=== PATIENT | male | born 1950 | race Caucasian/White ===

== ENCOUNTER 2019-02-25 07:38 | Inpatient (IN) | payer MEDICARE, MEDICAID ==
[~2019-02-25] VITALS: Ht 167.6 cm; Wt 92.1 kg
[~2019-02-25 07:38] MED LIST: AMIODARONE PO; DIGOXIN PO; METO-539 PO; SAVAYSA PO; TAMS0.4C31 PO
[2019-02-25] MEDS ORDERED: HYDR12.54 PO (09:23)
[2019-02-25] MEDS ORDERED: RIVA20TA MT (09:23)
[2019-02-25] MEDS ORDERED: LINA5TAB MT (09:23)
[2019-02-25] MEDS ORDERED: DOXA2TAB2 MT (09:23)
[2019-02-25 10:29] LABS: MEAN CORPUSCULAR HEMOGLOBIN 29.3 pg (28.0-32.0); MEAN CORPUSCULAR VOLUME 88.6 fL (80.0-94.0); PLATELET 221 x1000/uL (130-400); RED BLOOD CELL COUNT 4.54 mill/uL (4.7-6.1); RED CELL DISTRIBUTION WIDTH 13.8 % (11.6-14.6)
[2019-02-25] MEDS ORDERED: HEPARIN SODIUM 1,000 UNIT/1ML VIAL IV ONE (10:32)
[2019-02-25 10:33] LABS: CHLORIDE 109 mEq/L (98-107)
[2019-02-25 10:36] LABS: PARTIAL THROMBOPLASTIN TIME 29.3 sec (23.4-31.0); PROTHROMBIN TIME 10.7 sec (9.6-11.0)
[2019-02-25] MEDS ORDERED: HEPARIN 1,000 UNITS PREMIX 2,000 ML IV ONE (14:48)
[2019-02-25] MEDS ORDERED: LIDOCAINE HCL/PF 1% 10 MG/ML 5ML VIAL ONE (15:45)
[2019-02-25] MEDS ORDERED: FENTANYL CITRATE/PF 50MCG/ML 2ML VIAL ONE ×2 (15:45→20:42)
[2019-02-25] MEDS ORDERED: SODIUM CHLORIDE 0.9% 10ML VIAL ONE (15:45)
[2019-02-25] MEDS ORDERED: MIDAZOLAM HCL 2 MG/2 ML VIAL ONE (15:45)
[2019-02-25] MEDS ORDERED: NEOSTIGMINE METHYLSULFATE 1MG/ML 10 ML VIAL ONE (15:45)
[2019-02-25] MEDS ORDERED: ROCURONIUM BROMIDE 10MG/ML VIAL 5ML IV ONE ×2 (15:45→15:48)
[2019-02-25] MEDS ORDERED: GLYCOPYRROLATE 0.2 MG/ML 2ML VIAL ONE (15:45)
[2019-02-25] MEDS ORDERED: CEFAZOLIN SODIUM 1000MG/VIAL ONE (15:45)
[2019-02-25] MEDS ORDERED: PROPOFOL 200MG/20ML VIAL IV ONE (15:45)
[2019-02-25] MEDS ORDERED: SUCCINYLCHOLINE CHLORIDE 200MG/10ML IV ONE (15:46)
[2019-02-25] MEDS ORDERED: EPHEDRINE SULFATE 50MG/ML VIAL ONE (15:47)
[2019-02-25] MEDS ORDERED: METOCLOPRAMIDE HCL 10MG/2ML VIAL ONE (15:47)
[2019-02-25] MEDS ORDERED: ONDANSETRON HCL 4MG/2ML INJ ONE (15:47)
[2019-02-25] MEDS ORDERED: PHENYLEPHRINE HCL 10 MG/ML 1ML (IV VIAL) IV ONE (15:47)
[2019-02-25 15:54] LABS: HEMATOCRIT. 40.4 % (42.0-52.0); HEMOGLOBIN. 13.4 g/dL (14.0-18.0); MEAN PLATELET VOLUME 8.8 fl (7.4-10.4)
[2019-02-25 16:08] LABS: PLATELET ESTIMATE NORMAL
[2019-02-25] MEDS ORDERED: LIDOCAINE HCL 1% 20ML VIAL (Pyxis) INJ ONE (16:14)
[2019-02-25] MEDS ORDERED: HEPARIN 1000 UNITS/ML 10ML ONE (18:10)
[2019-02-25] MEDS ORDERED: VECURONIUM BROMIDE 10 MG/VIAL IV ONE (18:21)
[2019-02-25] MEDS ORDERED: PROTAMINE SULFATE 10MG/ML VIAL 5ML IV ONE (21:52)
[2019-02-25] MEDS ORDERED: HYDROMORPHONE HCL/PF 2MG/ML CPJ IV PRN (22:30)
[2019-02-25] MEDS ORDERED: ACETAMINOPHEN 325MG TABLET PO PRN (22:30)
[2019-02-25] MEDS ORDERED: ONDANSETRON HCL 4MG/2ML INJ IV PRN (22:30)
[2019-02-25] MEDS ORDERED: ATROPINE SULFATE 1MG/10ML SYR IV PRN (22:30)
[2019-02-25] MEDS ORDERED: MORPHINE SULFATE 2 MG/ML CPJ (NOT FOR IM USE) IV PRN (22:30)
[2019-02-25] MEDS ORDERED: MEPERIDINE HCL/PF 25MG/ML CPJ IV PRN ×2 (22:30)
[2019-02-25 23:30] VITALS: BP 159/79
[2019-02-26] VITALS (12 sets, daily range): BP systolic 117–174; BP diastolic 58–89
[2019-02-26] MEDS ORDERED: HYDRALAZINE 20MG/ML VIAL IV PRN (00:30)
[2019-02-26] MEDS ORDERED: SODIUM CHLORIDE 0.9% 1,000 ML IV ONE (00:53)
[2019-02-26 07:27] LABS: CHLORIDE 110 mEq/L (98-107)
[2019-02-26 07:37] LABS: HEMATOCRIT. 37.6 % (42.0-52.0); HEMOGLOBIN. 12.8 g/dL (14.0-18.0); MEAN CORPUSCULAR HEMOGLOBIN 30.2 pg (28.0-32.0); MEAN CORPUSCULAR VOLUME 88.8 fL (80.0-94.0); MEAN PLATELET VOLUME 8.4 fl (7.4-10.4); PLATELET 201 x1000/uL (130-400); RED BLOOD CELL COUNT 4.23 mill/uL (4.7-6.1); RED CELL DISTRIBUTION WIDTH 13.7 % (11.6-14.6)
[2019-02-26] MEDS ORDERED: LINAGLIPTIN 5MG TABLET PO SCH (09:00)
[2019-02-26] MEDS ORDERED: RIVAROXABAN 20 MG TABLET PO SCH (09:00)
[2019-02-26] MEDS ORDERED: HYDROCHLOROTHIAZIDE 12.5MG CAPSULE PO SCH (09:00)
[2019-02-26] MEDS ORDERED: TAMSULOSIN HCL 0.4MG SR CAPSULE PO SCH (09:00)
[2019-02-26] MEDS ORDERED: PNEUMOCOCCAL 23-VAL P-SAC VAC 0.5 ML IM ONE (12:00)
[2019-02-26 17:50] LABS: PLATELET ESTIMATE NORMAL
[2019-02-26] MEDS ORDERED: DOXAZOSIN MESYLATE 2MG TABLET PO SCH (21:00)
== END 2019-02-26 20:50 | disposition home or self-care (01) | DRG 274 ==
LOC: OR 07:38 → 3WST 07:39
PROVIDERS: ADMIT Internal Medicine Clinical Cardiac Electrophysiology; ATTEND Internal Medicine Clinical Cardiac Electrophysiology
PROC: 02583ZZ Destruction of Conduction Mechanism, Percutaneous Approach (ICD-10-PCS; principal; 2019-02-25)
PROC: 02K83ZZ Map Conduction Mechanism, Percutaneous Approach (ICD-10-PCS; 2019-02-25)
PROC: 4A023FZ Measurement of Cardiac Rhythm, Percutaneous Approach (ICD-10-PCS; 2019-02-25)
PROC: 4A0234Z Measurement of Cardiac Electrical Activity, Percutaneous Approach (ICD-10-PCS; 2019-02-25)
PROC: 4A023N8 Measurement of Cardiac Sampling and Pressure, Bilateral, Percutaneous Approach (ICD-10-PCS; 2019-02-25)
PROC: B2111ZZ Fluoroscopy of Multiple Coronary Arteries using Low Osmolar Contrast (ICD-10-PCS; 2019-02-25)
PROC: B2161ZZ Fluoroscopy of Right and Left Heart using Low Osmolar Contrast (ICD-10-PCS; 2019-02-25)
PROC: 04HY32Z Insertion of Monitoring Device into Lower Artery, Percutaneous Approach (ICD-10-PCS; 2019-02-25)
DX: I48.0 Paroxysmal atrial fibrillation (principal); E11.9 Type 2 diabetes mellitus without complications; I11.9 Hypertensive heart disease without heart failure; I45.10 Unspecified right bundle-branch block; I25.10 Atherosclerotic heart disease of native coronary artery without angina pectoris; I44.0 Atrioventricular block, first degree; I45.3 Trifascicular block
CPT/HCPCS: 36415; 80048; 82962; 85347; 93005; 93613; 93656; 93662; C1730; C1731; C1732; C1759; C1893; J0330; J0690; J1644; J2250; J2370; J2405; J2704; J2710; J2720; J2765; J3010; J3490